=== PATIENT | female | born 1945 | race African-American/Black ===

== ENCOUNTER 2017-10-24 14:01 | Inpatient (IN) | payer MEDICARE, BC, OTHER ==
[2017-10-24] MEDS: HYDROCODONE/APAP (5/325) TAB PO (17:27)
[2017-10-24 17:52] LABS: ABNORMAL IP MESSAGE 1; HEMATOCRIT 19.7 % (37.0-47.0); MEAN CORPUSCULAR HEMOGLOBIN 29.4 pg (29.0-33.0); MEAN CORPUSCULAR HGB CONC 32.5 g/dl (32.0-37.0); MEAN CORPUSCULAR VOLUME 90.4 fl (82.0-101.0); NUCLEATED RED BLOOD CELLS% 0.1 /100WBC (0.0-0.0); RED BLOOD COUNT 2.18 10^6/ul (4.20-5.40); RED CELL DISTRIBUTION WIDTH 15.2 % (11.5-14.5)
[2017-10-24 17:52] LABS: WHITE BLOOD COUNT 20.1 10^3/ul (4.8-10.8)
[2017-10-24 18:12] LABS: ADD MAN DIFF? YES; HEMOGLOBIN 6.4 g/dl (12.0-16.0); PLATELET COUNT 34 10^3/UL (140-415); POSITIVE DIFF @See below
[2017-10-24 18:13] LABS: PATH REVIEW? YES
[2017-10-24 18:35] LABS: EOSINOPHILS # 0.2 10^3/ul (0.0-0.5); EOSINOPHILS % (M) 1 % (0.0-7.0); HYPOCHROMASIA 1+ (0-0); LYMPHOCYTES % (M) 15 % (15-51); MONOCYTE # 1.2 10^3/ul (0.3-0.9); MONOCYTE #M 1.2 10^3/ul (0.3-0.9); MONOCYTES % (M) 6 % (0-11); SEGMENTED NEUTROPHILS (M) % 78 % (39-77)
[2017-10-24] MEDS: SOD CHLORIDE 0.9% 250 ML IV (19:04)
[2017-10-24] MEDS: HYDROmorphONE 0.5 MG/0.5 ML SYG IV (20:01)
[2017-10-24] MEDS ORDERED: ONDANSETRON 4 MG INJ IV (23:30)
[2017-10-24] MEDS ORDERED: ACETAMINOPHEN 325 MG TAB PO (23:30)
[2017-10-24 23:38] LABS: ANION GAP 17 (8-16); BLOOD UREA NITROGEN 27 mg/dl (7-20); CALCIUM 10.1 mg/dl (8.4-10.2); CHLORIDE 101 mmol/L (97-110); CREATININE 1.48 mg/dl (0.44-1.00); GLUCOSE 129 mg/dl (70-220); SODIUM 138 mmol/L (135-144)
[2017-10-25 00:05] LABS: CARBON DIOXIDE 25 mmol/L (21-31)
[2017-10-25 00:16] LABS: PT RATIO 1.1
[2017-10-25 00:17] LABS: PARTIAL THROMBOPLASTIN TIME 31.5 Sec (25.0-35.0)
[2017-10-25 00:44] LABS: INR 1.01; PROTIME 13.4 Sec (11.9-14.9)
[2017-10-25] MEDS: DIPHENHYDRAMINE 25 MG CAP PO (00:54)
[2017-10-25] MEDS: ACETAMINOPHEN 325 MG TAB PO (00:54)
[2017-10-25] MEDS: HYDROmorphONE 0.5 MG/0.5 ML SYG IV ×3 (04:13→17:44)
[2017-10-25 05:20] LABS: ADD MAN DIFF? NO
[2017-10-25 05:34] LABS: WHITE BLOOD COUNT 14.2 10^3/ul (4.8-10.8)
[2017-10-25 05:34] LABS: ABNORMAL IP MESSAGE 1; BASOPHILS % 0.1 % (0.0-2.0); EOSINOPHILS % 0.1 % (0.0-7.0); HEMATOCRIT 17.8 % (37.0-47.0); LYMPHOCYTES # 1.7 10^3/ul (0.8-2.9); LYMPHOCYTES % 11.7 % (15.0-51.0); MEAN CORPUSCULAR HEMOGLOBIN 28.9 pg (29.0-33.0); MEAN CORPUSCULAR HGB CONC 33.1 g/dl (32.0-37.0); MEAN CORPUSCULAR VOLUME 87.3 fl (82.0-101.0); MONOCYTE # 1.5 10^3/ul (0.3-0.9); MONOCYTES % 10.8 % (0.0-11.0); NEUTROPHILS % 76.9 % (39.0-77.0); RED BLOOD COUNT 2.04 10^6/ul (4.20-5.40); RED CELL DISTRIBUTION WIDTH 15.6 % (11.5-14.5)
[2017-10-25 06:12] LABS: POSITIVE DIFF @See below
[2017-10-25 06:13] LABS: ALANINE AMINOTRANSFERASE 41 IU/L (13-69); ALBUMIN 3.1 g/dl (3.3-4.9); ALBUMIN/GLOBULIN RATIO 0.83; ALKALINE PHOSPHATASE 71 IU/L (42-121); ANION GAP 14 (8-16); ASPARTATE AMINO TRANSFERASE 27 IU/L (15-46); BILIRUBIN,INDIRECT 0.3 mg/dl (0-1.1); BILIRUBIN,TOTAL 0.3 mg/dl (0.2-1.3); BLOOD UREA NITROGEN 27 mg/dl (7-20); CALCIUM 9.2 mg/dl (8.4-10.2); CARBON DIOXIDE 24 mmol/L (21-31); CHLORIDE 104 mmol/L (97-110); CREATININE 1.48 mg/dl (0.44-1.00); GLUCOSE 106 mg/dl (70-220); MAGNESIUM 2.3 mg/dl (1.7-2.5); PHOSPHORUS 4.1 mg/dl (2.5-4.9); POTASSIUM 4.2 mmol/L (3.5-5.1); SODIUM 138 mmol/L (135-144); TOTAL PROTEIN 6.8 g/dl (6.1-8.1)
[2017-10-25 06:16] LABS: HEMOGLOBIN 5.9 g/dl (12.0-16.0); PLATELET COUNT 28 10^3/UL (140-415)
[2017-10-25] MEDS ORDERED: VANCOMYCIN IV PER PHARMACY XX (08:00)
[2017-10-25] MEDS: CEFTRIAXONE 1 GM/50 ML (PMX) 50 ML IVPB (09:38)
[2017-10-25] MEDS: VANCOMYCIN 1.25 GM in SOD CHLORIDE 0.45% 250 ML IVPB (10:40)
[2017-10-25] MEDS ORDERED: IMMUNE GLOBULIN (HUMAN) 6 GM INJ IV (12:00)
[2017-10-25 13:08] LABS: ADD UMIC YES; UR ASCORBIC ACID NEGATIVE (NEGATIVE); UR BACTERIA FEW /HPF (NONE SEEN); UR BILIRUBIN (Dip) NEGATIVE (NEGATIVE); UR BLOOD (Dip) 3+ mg/dL (NEGATIVE); UR CLARITY SLIGHTLY CLOUDY (CLEAR); UR COLOR YELLOW (YELLOW); UR GLUCOSE (Dip) NEGATIVE (NEGATIVE); UR KETONES (Dip) NEGATIVE (NEGATIVE); UR LEUKOCYTE ESTERASE (Dip) 1+ Leu/ul (NEGATIVE); UR NITRITE (Dip) NEGATIVE (NEGATIVE); UR RBC 25 /HPF (0-5); UR SPECIFIC GRAVITY (Dip) 1.019 (1.003-1.030); UR SQUAMOUS EPITHELIAL CELL FEW /HPF (FEW); UR TOTAL PROTEIN (Dip) 2+ mg/dl (NEGATIVE); UR UROBILINOGEN (Dip) 1+ mg/dL (NEGATIVE); UR WBC 11 /HPF (0-5)
[2017-10-25 13:44] LABS: WHITE BLOOD COUNT 14.6 10^3/ul (4.8-10.8)
[2017-10-25 13:44] LABS: ABNORMAL IP MESSAGE 1; HEMATOCRIT 20.2 % (37.0-47.0); MEAN CORPUSCULAR HEMOGLOBIN 30.4 pg (29.0-33.0); MEAN CORPUSCULAR HGB CONC 34.7 g/dl (32.0-37.0); MEAN CORPUSCULAR VOLUME 87.8 fl (82.0-101.0); MEAN PLATELET VOLUME 11.9 fl (7.4-10.4); RED CELL DISTRIBUTION WIDTH 15.5 % (11.5-14.5)
[2017-10-25 13:52] LABS: POSITIVE DIFF @See below
[2017-10-25 13:55] LABS: ADD MAN DIFF? YES; PLATELET COUNT 24 10^3/UL (140-415)
[2017-10-25 14:27] LABS: ANISOCYTOSIS 1+ (0-0); BAND NEUTROPHILS #M 0.1 10^3/ul (0.0-0.6); BAND NEUTROPHILS % (M) 1 % (0-4); LYMPHOCYTES #M 0.7 10^3/ul (0.8-2.9); LYMPHOCYTES % (M) 5 % (15-51); MONOCYTE #M 0.8 10^3/ul (0.3-0.9); MONOCYTES % (M) 6 % (0-11); PLATELET ESTIMATE SIG DECREASED; POLYCHROMASIA 1+ (0-0); SEG NEUT #M 12.9 10^3/ul (1.6-7.5); SEGMENTED NEUTROPHILS (M) % 88 % (39-77); SMUDGE%M 4 % (0-0)
[2017-10-25] MEDS: METHYLPREDNISOLONE 40 MG INJ IV ×2 (14:47→22:28)
[2017-10-25] MEDS ORDERED: WATER STERILE FOR IV (17:00)
[2017-10-25] MEDS ORDERED: IMMUNE GLOBULIN IV (17:00)
[2017-10-25] MEDS: IMMUNE GLOBULIN IV (17:00)
[2017-10-25] MEDS: WATER STERILE FOR IV (17:00)
[2017-10-25] MEDS: HYDROCODONE/APAP (5/325) TAB PO (22:04)
[2017-10-26] MEDS: ACETAMINOPHEN 325 MG TAB PO ×3 (00:48→16:46)
[2017-10-26] MEDS: HYDROmorphONE 0.5 MG/0.5 ML SYG IV ×4 (00:49→21:43)
[2017-10-26] MEDS: HYDROCODONE/APAP (5/325) TAB PO ×2 (04:52→19:51)
[2017-10-26] MEDS: METHYLPREDNISOLONE 40 MG INJ IV ×3 (05:05→22:48)
[2017-10-26 05:26] LABS: WHITE BLOOD COUNT 13.2 10^3/ul (4.8-10.8)
[2017-10-26 05:26] LABS: ABNORMAL IP MESSAGE 1; HEMATOCRIT 20.7 % (37.0-47.0); HEMOGLOBIN 7.2 g/dl (12.0-16.0); MEAN CORPUSCULAR HEMOGLOBIN 29.8 pg (29.0-33.0); MEAN CORPUSCULAR HGB CONC 34.8 g/dl (32.0-37.0); MEAN CORPUSCULAR VOLUME 85.5 fl (82.0-101.0); RED BLOOD COUNT 2.42 10^6/ul (4.20-5.40); RED CELL DISTRIBUTION WIDTH 15.2 % (11.5-14.5)
[2017-10-26 05:39] LABS: ALANINE AMINOTRANSFERASE 47 IU/L (13-69); ALBUMIN 3.3 g/dl (3.3-4.9); ALBUMIN/GLOBULIN RATIO 0.78; ALKALINE PHOSPHATASE 71 IU/L (42-121); ANION GAP 16 (8-16); ASPARTATE AMINO TRANSFERASE 35 IU/L (15-46); BILIRUBIN,INDIRECT 0.4 mg/dl (0-1.1); BILIRUBIN,TOTAL 0.4 mg/dl (0.2-1.3); BLOOD UREA NITROGEN 20 mg/dl (7-20); CARBON DIOXIDE 24 mmol/L (21-31); CHLORIDE 103 mmol/L (97-110); CREATININE 1.08 mg/dl (0.44-1.00); GLUCOSE 162 mg/dl (70-220); POTASSIUM 4.5 mmol/L (3.5-5.1); SODIUM 138 mmol/L (135-144); TOTAL PROTEIN 7.5 g/dl (6.1-8.1)
[2017-10-26 06:22] LABS: CALCIUM 9.4 mg/dl (8.4-10.2)
[2017-10-26 06:55] LABS: ADD MAN DIFF? YES; PLATELET COUNT 23 10^3/UL (140-415); POSITIVE DIFF @See below
[2017-10-26] MEDS: CEFTRIAXONE 1 GM/50 ML (PMX) 50 ML IVPB (07:57)
[2017-10-26] MEDS: WATER STERILE FOR IV ×2 (09:00→16:20)
[2017-10-26] MEDS: IMMUNE GLOBULIN IV ×2 (09:00→16:20)
[2017-10-26] MEDS: VANCOMYCIN 750 MG in DEXTROSE 5% 150 ML IVPB (09:07)
[2017-10-26 09:10] LABS: ANISOCYTOSIS 2+ (0-0); LYMPHOCYTES #M 0.3 10^3/ul (0.8-2.9); LYMPHOCYTES % (M) 3 % (15-51); PLATELET ESTIMATE SIG DECREASED; SEGMENTED NEUTROPHILS (M) % 97 % (39-77); SMUDGE%M 4 % (0-0)
[2017-10-26] MEDS ORDERED: IMMUNE GLOBULIN (HUMAN) 6 GM INJ IV (14:00)
[2017-10-26 16:37] LABS: TYPE AND SCREEN 1
[2017-10-26] MEDS: DIPHENHYDRAMINE 50 MG INJ IV (19:04)
[2017-10-27] MEDS: HYDROCODONE/APAP (5/325) TAB PO (03:08)
[2017-10-27 05:46] LABS: ABNORMAL IP MESSAGE 1; HEMATOCRIT 20.6 % (37.0-47.0); MEAN CORPUSCULAR HEMOGLOBIN 29.2 pg (29.0-33.0); MEAN CORPUSCULAR HGB CONC 33.5 g/dl (32.0-37.0); MEAN CORPUSCULAR VOLUME 87.3 fl (82.0-101.0); MEAN PLATELET VOLUME 11.1 fl (7.4-10.4); PLATELET COUNT 61 10^3/UL (140-415); RED BLOOD COUNT 2.36 10^6/ul (4.20-5.40); RED CELL DISTRIBUTION WIDTH 15.6 % (11.5-14.5)
[2017-10-27 05:46] LABS: WHITE BLOOD COUNT 13.2 10^3/ul (4.8-10.8)
[2017-10-27] MEDS: HYDROmorphONE 0.5 MG/0.5 ML SYG IV ×3 (06:10→20:24)
[2017-10-27] MEDS: METHYLPREDNISOLONE 40 MG INJ IV ×3 (06:10→21:41)
[2017-10-27 06:14] LABS: ALANINE AMINOTRANSFERASE 58 IU/L (13-69); ALBUMIN 3.2 g/dl (3.3-4.9); ALBUMIN/GLOBULIN RATIO 0.84; ALKALINE PHOSPHATASE 74 IU/L (42-121); ANION GAP 12 (8-16); ASPARTATE AMINO TRANSFERASE 44 IU/L (15-46); BILIRUBIN,INDIRECT 0.4 mg/dl (0-1.1); BILIRUBIN,TOTAL 0.4 mg/dl (0.2-1.3); BLOOD UREA NITROGEN 24 mg/dl (7-20); CALCIUM 9.5 mg/dl (8.4-10.2); CARBON DIOXIDE 27 mmol/L (21-31); CHLORIDE 105 mmol/L (97-110); CREATININE 1.09 mg/dl (0.44-1.00); GLUCOSE 157 mg/dl (70-220); POTASSIUM 4.5 mmol/L (3.5-5.1); SODIUM 139 mmol/L (135-144)
[2017-10-27 06:19] LABS: % IRON SATURATION 12 % SAT (22-52)
[2017-10-27] MEDS: ACETAMINOPHEN 325 MG TAB PO ×3 (06:28→20:32)
[2017-10-27 06:36] LABS: IRON 35 ug/dl (35-150); TOTAL IRON BINDING CAPACITY 287 ug/dl (241-421)
[2017-10-27 06:52] LABS: POSITIVE DIFF @See below
[2017-10-27 06:56] LABS: ADD MAN DIFF? YES; HEMOGLOBIN 6.9 g/dl (12.0-16.0)
[2017-10-27] MEDS: CEFTRIAXONE 1 GM/50 ML (PMX) 50 ML IVPB (08:14)
[2017-10-27 09:16] LABS: ANISOCYTOSIS 1+ (0-0); GIANT THROMBO% (M) 1 % (0-0); LYMPHOCYTES #M 0.5 10^3/ul (0.8-2.9); LYMPHOCYTES % (M) 4 % (15-51); MONOCYTE #M 0.2 10^3/ul (0.3-0.9); MONOCYTES % (M) 2 % (0-11); PLATELET ESTIMATE SIG DECREASED; POIKILOCYTOSIS 2+ (0-0); POLYCHROMASIA 3+ (0-0); SEGMENTED NEUTROPHILS (M) % 94 % (39-77); SMUDGE%M 1 % (0-0)
[2017-10-27] MEDS: VANCOMYCIN 750 MG in DEXTROSE 5% 150 ML IVPB (09:56)
[2017-10-27] MEDS: DIPHENHYDRAMINE 50 MG INJ IV (14:15)
[2017-10-27 17:15] LABS: IMMEDIATE SPIN CROSSMATCH 1 4
[2017-10-27] MEDS: DANAZOL 200 MG PO (21:34)
[2017-10-27 21:54] LABS: OCCULT BLOOD STOOL NEGATIVE (NEGATIVE)
[2017-10-28] MEDS: HYDROmorphONE 0.5 MG/0.5 ML SYG IV ×2 (00:43→12:52)
[2017-10-28] MEDS: ACETAMINOPHEN 325 MG TAB PO (04:00)
[2017-10-28] MEDS: METHYLPREDNISOLONE 40 MG INJ IV ×2 (05:22→12:52)
[2017-10-28 05:40] LABS: ADD MAN DIFF? NO
[2017-10-28 05:53] LABS: ABNORMAL IP MESSAGE 1; BASOPHILS % 0.1 % (0.0-2.0); HEMATOCRIT 27.1 % (37.0-47.0); HEMOGLOBIN 9.4 g/dl (12.0-16.0); LYMPHOCYTES # 0.8 10^3/ul (0.8-2.9); LYMPHOCYTES % 6.9 % (15.0-51.0); MEAN CORPUSCULAR HEMOGLOBIN 29.8 pg (29.0-33.0); MEAN CORPUSCULAR HGB CONC 34.7 g/dl (32.0-37.0); MEAN PLATELET VOLUME 12.4 fl (7.4-10.4); MONOCYTE # 0.4 10^3/ul (0.3-0.9); MONOCYTES % 3.2 % (0.0-11.0); NEUTROPHIL # 10.6 10^3/ul (1.6-7.5); NEUTROPHILS % 88.6 % (39.0-77.0); NUCLEATED RED BLOOD CELLS% 0.2 /100WBC (0.0-0.0); PLATELET COUNT 50 10^3/UL (140-415); RED BLOOD COUNT 3.15 10^6/ul (4.20-5.40); RED CELL DISTRIBUTION WIDTH 14.8 % (11.5-14.5)
[2017-10-28 06:14] LABS: POSITIVE DIFF @See below
[2017-10-28 06:25] LABS: ALANINE AMINOTRANSFERASE 66 IU/L (13-69); ALBUMIN 3.1 g/dl (3.3-4.9); ALBUMIN/GLOBULIN RATIO 0.86; ALKALINE PHOSPHATASE 79 IU/L (42-121); ANION GAP 13 (8-16); ASPARTATE AMINO TRANSFERASE 39 IU/L (15-46); BILIRUBIN,INDIRECT 0.4 mg/dl (0-1.1); BILIRUBIN,TOTAL 0.4 mg/dl (0.2-1.3); BLOOD UREA NITROGEN 25 mg/dl (7-20); CARBON DIOXIDE 24 mmol/L (21-31); CHLORIDE 107 mmol/L (97-110); CREATININE 1.06 mg/dl (0.44-1.00); GLUCOSE 161 mg/dl (70-220); POTASSIUM 4.6 mmol/L (3.5-5.1); SODIUM 139 mmol/L (135-144); TOTAL PROTEIN 6.7 g/dl (6.1-8.1)
[2017-10-28 07:42] LABS: OCCULT BLOOD STOOL NEGATIVE (NEGATIVE)
[2017-10-28] MEDS: ONDANSETRON 4 MG INJ IV (08:43)
[2017-10-28] MEDS: HYDROCODONE/APAP (5/325) TAB PO (08:43)
[2017-10-28] MEDS: DANAZOL 200 MG PO (08:43)
== END 2017-10-28 16:00 | disposition home or self-care (01) | DRG 813 ==
LOC: PP2 23:25 → FTE 14:01
PROVIDERS: Internal Medicine
PROC: 30233N1 Transfusion of Nonautologous Red Blood Cells into Peripheral Vein, Percutaneous Approach (ICD-10-PCS; 2017-10-24)
PROC: 30233N1 Transfusion of Nonautologous Red Blood Cells into Peripheral Vein, Percutaneous Approach (ICD-10-PCS; 2017-10-25)
PROC: 6A550Z2 Pheresis of Platelets, Single (ICD-10-PCS; 2017-10-26)
PROC: 30233N1 Transfusion of Nonautologous Red Blood Cells into Peripheral Vein, Percutaneous Approach (ICD-10-PCS; principal; 2017-10-27)
DX: D69.3 Immune thrombocytopenic purpura (principal); N17.9 Acute kidney failure, unspecified; D64.9 Anemia, unspecified; R50.9 Fever, unspecified; M25.061 Hemarthrosis, right knee
CPT/HCPCS: 36430; 73562; 73700; 80048; 80053; 81001; 82270; 82728; 83540; 83735; 84100; 85025; 85610; 85730; 86644; 86850; 86900; 86901; 86920; 87040; 87086; 96374; 99285-25; G0378; J1566